=== PATIENT | male | born 1985 | race Caucasian/White ===

== ENCOUNTER 2024-05-30 06:48 | Emergency (ER) | payer MEDICAID ==
[~2024-05-30] VITALS: Ht 172.7 cm; Wt 86.2 kg
[2024-05-30 07:14] VITALS: O2SAT 98
[2024-05-30 08:24] LABS: CLARITY URINE CLOUDY (CLEAR); COLOR URINE YELLOW (YELLOW); GLUCOSE URINE NEGATIVE (NEGATIVE); KETONES URINE NEGATIVE (NEGATIVE); LEUKOCYTE ESTERASE URINE NEGATIVE (NEGATIVE); NITRITE URINE NEGATIVE (NEGATIVE); OCCULT BLOOD URINE NEGATIVE (NEGATIVE); PH URINE 8.5 (4.5-8.0); PROTEIN URINE NEGATIVE (NEGATIVE); SPECIFIC GRAVITY URINE 1.013 (1.005-1.030); UROBILINOGEN URINE 0.2 E.U./dL (0.2-1.0)
[2024-05-30 08:30] LABS: BASOPHILS % 0.4 % (0.0-2.0); HEMATOCRIT. 50.6 % (42.0-52.0); HEMOGLOBIN. 17.1 g/dL (14.0-18.0); MEAN CORPUSCULAR HEMOGLOBIN 30.4 pg (28.0-32.0); MEAN CORPUSCULAR HGB CONC 33.7 g/dL (31.0-37.0); MEAN CORPUSCULAR VOLUME 90.3 fL (80.0-94.0); MEAN PLATELET VOLUME 8.2 fl (7.4-10.4); MONOCYTES % 5.5 % (2.0-8.0); NEUTROPHILS % 77.1 % (40.0-76.0); PLATELET 183 x1000/uL (130-400); RED BLOOD CELL COUNT 5.61 mill/uL (4.7-6.1); RED CELL DISTRIBUTION WIDTH 14.6 % (11.6-14.6); WHITE BLOOD COUNT 6.9 x1000/uL (4.5-11.0)
[2024-05-30 08:37] LABS: WBC URINE 0-2 /hpf (0-2)
[2024-05-30 08:38] LABS: AMORPHOUS SEDIMENT URINE 2+ /lpf; BACTERIA URINE NONE SEEN; RBC URINE 0-2 /hpf (0-2); SQUAMOUS EPITHELIAL CELL URINE RARE /lpf (RARE/1+); YEAST URINE NONE SEEN
[2024-05-30 08:38] LABS: PROTHROMBIN TIME 11.6 sec (9.6-11.0)
[2024-05-30] MEDS: MAGNESIUM/ALUMINUM HYDROXIDE/SIMETHICONE 30ML UDC PO STA (08:39)
[2024-05-30] MEDS: ACETAMINOPHEN 325MG TABLET PO STA (08:39)
[2024-05-30 08:42] LABS: CHLORIDE 103 mEq/L (98-107); POTASSIUM 4.2 mEq/L (3.5-5.1); SODIUM 138 mEq/L (136-145)
[2024-05-30 08:43] LABS: CALCIUM 10.1 mg/dL (8.7-10.4); CARBON DIOXIDE 29 mEq/L (21-32)
[2024-05-30 08:48] LABS: CREATININE 1.1 mg/dL (0.6-1.3); GLUCOSE 113 mg/dL (70-105); UREA NITROGEN BLOOD 15 mg/dL (9-23)
[2024-05-30 08:50] LABS: ALANINE AMINOTRANSFERASE 94 IU/L (10-49); ALBUMIN 4.7 g/dL (3.2-4.8); ASPARTATE AMINOTRANSFERASE 40 IU/L (<34); BILIRUBIN DIRECT 0.2 mg/dL (<=3.0); BILIRUBIN TOTAL 0.6 mg/dL (0.1-1.0); PROTEIN TOTAL 7.8 g/dL (6.0-8.3)
[2024-05-30] MEDS: FAMOTIDINE 20MG/2ML VIAL IV STA (08:50)
[2024-05-30] MEDS ORDERED: FAMO-135 MT (09:10)
[2024-05-30] MEDS: FAMOTIDINE 20MG TABLET PO ONE (09:29)
[2024-05-30] MEDS ORDERED: AMOXICILLIN 50MG/ML ORAL SYR PO ONE (10:00)
[2024-05-30 10:02] VITALS: BP 120/71; PULSE 80; RESP 16; TEMP 36.89184; O2SAT 98
== END 2024-05-30 10:10 | disposition home or self-care (01) ==
LOC: ER 07:09
DX: R10.13 Epigastric pain (principal)
CPT/HCPCS: 99284; 76705; 71045; 80076; 80048; 81003; 83690; 85025; 85610; 36415; J3490